=== PATIENT | female | born 2000 | race Caucasian/White ===

== ENCOUNTER 2020-06-08 10:40 | Inpatient (IN) | payer OTHER, SELFPAY ==
[~2020-06-08] VITALS: Ht 157.5 cm; Wt 86.2 kg
[2020-06-08] MEDS ORDERED: LR 1,000 ML IV ONE (12:00)
[2020-06-08] MEDS ORDERED: OXYTOCIN/0.9 % SODIUM CHLORIDE 1,000 ML IV SCH (12:00)
[2020-06-08] MEDS ORDERED: TERBUTALINE SULFATE 1 MG/ML VIAL SUBCUT ONE (12:00)
[2020-06-08] MEDS ORDERED: LR 1,000 ML IV SCH (12:00)
[2020-06-08 12:41] LABS: BASOPHILS % (AUTO) 0.1 % (0.0-2.0); EOSINOPHILS % (AUTO) 0.4 % (0.0-4.0); HEMATOCRIT 32.1 % (36-48); HEMOGLOBIN 10.3 g/dL (12.0-16.0); LYMPHOCYTES # (AUTO) 1.9 K/uL (1.0-5.5); MEAN CORPUSCULAR HEMOGLOBIN 24 pg (27-31); MEAN CORPUSCULAR HGB CONC 32 % (32-36); MEAN CORPUSCULAR VOLUME 75 fL (79.0-98.0); MONOCYTES # (AUTO) 0.8 K/uL (0.0-1.0); MONOCYTES % (AUTO) 8.1 % (1.7-9.3); NEUTROPHILS # (AUTO) 6.9 K/uL (1.8-7.7); NEUTROPHILS % (AUTO) 71.4 % (40.0-70.0); PLATELET COUNT (AUTO) 187 K/uL (130-430); RED BLOOD CELL COUNT(AUTO) 4.28 MIL/uL (4.2-6.2); RED CELL DISTRIBUTION WIDTH 18.5 % (9.0-15.0); WHITE BLOOD COUNT (AUTO) 9.7 K/uL (4.8-10.8)
[2020-06-08 13:22] VITALS: BP_SYST 118
[2020-06-08] MEDS ORDERED: MORPHINE SULFATE 10 MG/ML VIAL ONE (17:44)
[2020-06-08] MEDS ORDERED: DIPHENHYDRAMINE INJ 50 MG/ML VIAL IVP PRN (21:00)
[2020-06-08] MEDS ORDERED: FENT2mCg/mL-ROPIVA0.2%/NS EPID 200 ML EP SCH (21:00)
[2020-06-08] MEDS ORDERED: fentaNYL CITRATE/PF 100 MCG/2 ML AMP ONE (21:00)
[2020-06-08] MEDS ORDERED: NALOXONE HCL 0.4 MG/ML AMP (NARCAN) IVP PRN (21:00)
[2020-06-08] MEDS ORDERED: NALBUPHINE HCL 10 MG/ML AMP IVP PRN (21:00)
[2020-06-08] MEDS ORDERED: ONDANSETRON HCL 4 MG/2 ML VIAL IVP PRN (21:00)
[2020-06-08] MEDS ORDERED: ROPIVACAINE HCL/PF 0.2% 200 ML ONE (21:01)
[2020-06-09] MEDS ORDERED: CEFAZOLIN 2 GM IVPB PREMIX 50 ML IV ONE (06:30)
[2020-06-09] MEDS ORDERED: DIPHENHYDRAMINE INJ 50 MG/ML VIAL IVP PRN (07:45)
[2020-06-09] MEDS ORDERED: NALBUPHINE HCL 10 MG/ML AMP IVP PRN (07:45)
[2020-06-09] MEDS ORDERED: MORPHINE SULFATE 10MG/10ML PF AMP SP SCH (07:45)
[2020-06-09] MEDS ORDERED: NALOXONE HCL 0.4 MG/ML AMP (NARCAN) IVP PRN ×2 (07:45)
[2020-06-09] MEDS ORDERED: KETOROLAC TROMETHAMINE 60 MG/2 ML VIAL IM PRN (07:45)
[2020-06-09] MEDS ORDERED: fentaNYL CITRATE/PF 100 MCG/2 ML AMP IVP PRN ×2 (07:45)
[2020-06-09] MEDS ORDERED: ONDANSETRON HCL 4 MG/2 ML VIAL IVP PRN (07:45)
[2020-06-09 08:00] VITALS: BP_SYST 123
[2020-06-09] MEDS ORDERED: ONDANSETRON HCL 4 MG/2 ML VIAL ONE (08:11)
[2020-06-09] MEDS: MORPHINE SULFATE 10 MG/ML VIAL IVP PRN ×2 (16:18→20:00)
[2020-06-10] MEDS ORDERED: DOCUSATE SODIUM 100 MG CAPSULE PO PRN (00:15)
[2020-06-10] MEDS ORDERED: DIPH-TET-PERTUS Vaccine 0.5 ML VIAL (ADACEL) I.M. PRN (00:15)
[2020-06-10] MEDS ORDERED: OXYCODONE/ACETAMINOPHEN 5-325 TABLET PO PRN ×2 (00:15)
[2020-06-10] MEDS ORDERED: HYDROcodone/ACETAMIN 5-325 MG TAB (NORCO/ VICODIN) PO PRN (00:15)
[2020-06-10] MEDS ORDERED: NALOXONE HCL 0.4 MG/ML AMP (NARCAN) IVP PRN (00:15)
[2020-06-10] MEDS: IBUPROFEN 600 MG TABLET PO SCH ×2 (05:50→12:35)
[2020-06-10 10:22] LABS: BASOPHILS % (AUTO) 0.4 % (0.0-2.0); EOSINOPHILS % (AUTO) 0.4 % (0.0-4.0); HEMATOCRIT 33.5 % (36-48); HEMOGLOBIN 10.6 g/dL (12.0-16.0); LYMPHOCYTES # (AUTO) 1.5 K/uL (1.0-5.5); MEAN CORPUSCULAR HEMOGLOBIN 24 pg (27-31); MEAN CORPUSCULAR HGB CONC 32 % (32-36); MEAN CORPUSCULAR VOLUME 77 fL (79.0-98.0); MONOCYTES # (AUTO) 0.8 K/uL (0.0-1.0); MONOCYTES % (AUTO) 7.9 % (1.7-9.3); NEUTROPHILS # (AUTO) 7.9 K/uL (1.8-7.7); NEUTROPHILS % (AUTO) 76.3 % (40.0-70.0); PLATELET COUNT (AUTO) 168 K/uL (130-430); RED BLOOD CELL COUNT(AUTO) 4.38 MIL/uL (4.2-6.2); RED CELL DISTRIBUTION WIDTH 18.7 % (9.0-15.0); WHITE BLOOD COUNT (AUTO) 10.3 K/uL (4.8-10.8)
[2020-06-10] MEDS ORDERED: TEMAZEPAM 15 MG CAPSULE PO PRN (21:00)
== END 2020-06-10 17:30 | disposition home or self-care (01) | DRG 540 ==
LOC: SPU 10:40
PROVIDERS: ADMIT Obstetrics & Gynecology; ATTEND Obstetrics & Gynecology
PROC: 10D00Z1 Extraction of Products of Conception, Low, Open Approach (ICD-10-PCS; principal; 2020-06-09 07:00)
DX: O62.2 Other uterine inertia (principal); Z20.828 Contact with and (suspected) exposure to other viral communicable diseases; Z37.0 Single live birth
CPT/HCPCS: 36415; 85025; 86592; 86886; 86900; 86901; J0690; J1885; J2270; J2405; J2590; J3010